=== PATIENT | female | born 1990 ===

== ENCOUNTER 2021-06-01 23:31 | Inpatient (IN) | payer SELFPAY ==
[2021-06-02] MEDS ORDERED: ONDANSETRON 4 MG ODT TAB PO ONE (02:46)
[2021-06-02] MEDS ORDERED: ONDANSETRON 4 MG/2 ML INJ IV ONE ×2 (04:19→07:29)
[2021-06-02] MEDS ORDERED: MORPHINE 4 MG/1 ML INJ IV ONE ×2 (04:19→07:30)
[2021-06-02] MEDS ORDERED: FAMOTIDINE 20 MG/2 ML INJ IV ONE (04:19)
[2021-06-02 04:54] LABS: Basophils % (Auto) 0.2 % (0.0-1.8); Eosinophils % (Auto) 0.1 % (0.0-4.3); Hematocrit 34.9 % (30.3-42.9); Hemoglobin 11.7 gm/dl (10.1-14.3); Lymphocytes # (Auto) 1.5 K/mm3 (1.2-5.4); Lymphocytes % (Auto) 15.5 % (13.4-35.0); Mean Corpuscular HGB Conc 34 % (30-34); Mean Corpuscular Volume 88 fl (79-97); Monocytes # (Auto) 0.5 K/mm3 (0.0-0.8); Monocytes % (Auto) 5.4 % (0.0-7.3); Platelet Count 166 K/mm3 (140-440); Red Blood Count 3.96 M/mm3 (3.65-5.03); Red Cell Distribution Width 15.4 % (13.2-15.2)
[2021-06-02 05:17] LABS: Alanine Aminotransferase 600 units/L (7-56); Albumin 4.4 g/dL (3.9-5); Blood Urea Nitrogen 10 mg/dL (7-17); Calcium 9.2 mg/dL (8.4-10.2); Hemolysis Index 11
[2021-06-02 05:24] LABS: BUN/Creatinine Ratio 25
--- NOTE | 2021-06-02 06:00 | Ultrasound Report ---
ULTRASOUND ABDOMEN, LIMITED (RIGHT UPPER QUADRANT) INDICATION: RUQ Pain. COMPARISON: None available. FINDINGS: Pancreas: Visualized portion shows no significant abnormality. Liver: Normal in size, measuring 14.1 cm in length, with generalized increased echotexture. No other significant abnormality. Gallbladder: Cholelithiasis is noted without evidence of acute cholecystitis. Sonographic Guadarrama's s ign: Not performed. Bile ducts: Mildly dilated common duct, measuring 7.7 mm. No intrahepatic ductal dilatation. Free fluid: None. Additional Findings: None. IMPRESSION: 1. Cholelithiasis without sonographic evidence of acute cholecystitis. 2. Mildly dilated common bile duct is nonspecific. Signer Name: Bunny Parish MD Signed: 06/02/2021 5:55 AM Workstation Name: [id number]
[2021-06-02 06:51] LABS: Bilirubin,Urine NEG (Negative); Blood,Urine NEG (Negative); Color,Urine Yellow (Yellow); Mucus,Urine 3+ /HPF; Protein,Urine <15 mg/dL mg/dL (Negative)
--- NOTE | 2021-06-02 07:22 | Emergency Department Report ---
ED Abdominal Pain HPI - General Chief Complaint: Abdominal Pain Stated Complaint: SEVERE STOMACH PAIN/EMESIS Source: patient Mode of arrival: Ambulatory Limitations: No Limitations - History of Present Illness Initial Comments: Patient is a A0 30-year-old female with no past medical history presents to the ED with complaint of acute onset persistent severe epigastric pain that radiates to the right upper quadrant area with intractable nausea and vomiting for the last 1 week, worse in the last 2 days. Patient states that the pain appears to be triggered each time she eats any food and in the last 8 hours after eating meal of pork the pain became constant, worse and persistent with intractable nausea and vomiting. Patient denies fever, chills, dizziness, sy ncope, chest pain, shortness of breath, dysuria, urinary frequency and urgency, hematemesis, hematochezia, diarrhea, vaginal bleeding, vaginal discharge, hematuria, fever and chills. MD Complaint: abdominal pain (Right upper quadrant pain), other (Nausea and vomiting) -: Sudden, week(s) (1) Location: RUQ, epigastric Radiation: RUQ, epigastric Migration to: no migration Severity: severe Severity scale (0 -10): 8 Quality: cramping, sharp Consistency: constant Improves With: nothing Worsens With: eating, vomiting Associated Symptoms: denies other symptoms, nausea, vomiting, anorexia. denies: diarrhea, fever, chills, constipation, dysuria, hematemesis, hematochezia, melena, hematuria, syncope, other - Related Data LMP Date: 05/07/21 Allergies Allergy/AdvReac Type Severity Reaction Status Date / Time No Known Allergies Allergy Unverified 06/02/21 02:46 ED Review of Systems ROS: Stated complaint: SEVERE STOMACH PAIN/EMESIS Other details as noted in HPI Constitutional: denies: chills, fever Eyes: denies: eye pain, eye discharge, vision change ENT: denies: ear pain, throat pain Respiratory: denies: cough, shortness of breath, wheezing Cardiovascular: denies: chest pain, palpitations Endocrine: no symptoms reported Gastrointestinal: abdominal pain (Right upper quadrant and epigastric pain), nausea, vomiting. denies: diarrhea Genitourinary: denies: urgency, dysuria, discharge Musculoskeletal: denies: back pain, joint swelling, arthralgia Skin: denies: rash, lesions Neurological: denies: headache, weakness, paresthesias Psychiatric: denies: anxiety, depression Hematological/Lymphatic: denies: easy bleeding, easy bruising ED Past Medical Hx - Past Medical History Previous Medical History?: No - Surgical History Past Surgical History?: Yes Hx Appendectomy: Yes (2007) - Social History Smoking Status: Never Smoker Substance Use Type: None ED Physical Exam - General Limitations: No Limitations General appearance: alert, in no apparent distress - Head Head exam: Present: atraumatic, normocephalic, normal inspection - Eye Eye exam: Present: normal appearance, PERRL, EOMI Pupils: Present: normal accommodation - ENT ENT exam: Present: normal exam, normal orophraynx, mucous membranes moist, TM's normal bilaterally, normal external ear exam - Neck Neck exam: Present: normal inspection, full ROM - Respiratory Respiratory exam: Present: normal lung sounds bilaterally. Absent: respiratory distress, wheezes, rales, rhonchi, stridor, chest wall tenderness, accessory muscle use, decreased breath sounds, prolonged expiratory - Cardiovascular Cardiovascular Exam: Present: regular rate, normal rhythm, normal heart sounds. Absent: systolic murmur, diastolic murmur, rubs, gallop - GI/Abdominal GI/Abdominal exam: Present: soft, tenderness (Palpable epigastric and right upper quadrant tenderness with positive Guadarrama sign), guarding, rebound, normal bowel sounds. Absent: hyperactive bowel sounds, hypoactive bowel sounds, organomegaly, mass - Extremities Exam Extremities exam: Present: normal inspection, full ROM, normal capillary refill - Back Exam Back exam: Present: normal inspection, full ROM. Absent: tenderness, CVA tenderness (R), muscle spasm, paraspinal tenderness, vertebral tenderness - Neurological Exam Neurological exam: Present: alert, oriented X3, CN II-XII intact, normal gait, reflexes normal - Psychiatric Psychiatric exam: Present: normal affect, normal mood - Skin Skin exam: Present: warm, dry, intact, normal color. Absent: rash ED Course Vital Signs 06/02/21 02:28 Temperature 98.6 F Pulse Rate 77 Respiratory 18 Rate Blood Pressure 95/60 O2 Sat by Pulse 99 Oximetry ED Medical Decision Making - Lab Data Result diagrams: 06/02/21 04:24 06/02/21 04:24 - Radiology Data Radiology results: report reviewed, image reviewed [facility] [address] [place] [id number] Ultrasound Report Signed Patient: ABE LIU MR# : [id number] : 1990 Acct:[id number] Age/Sex: 30 / F ADM Date: 06/01/21 Loc: ED Attending Dr: Ordering Physician: HI UGARTE Date of Service: 06/02/21 Procedure(s): US abdomen limited Accession Number(s): [id number] cc: HI UGARTE ULTRASOUND ABDOMEN, LIMITED (RIGHT UPPER QUADRANT) INDICATION: RUQ Pain. COMPARISON: None available. FINDINGS: Pancreas: Visualized portion shows no significant abnormality. Liver: Normal in size, measuring 14.1 cm in length, with generalized increased echotexture. No other significant abnormality. Gallbladder: Cholelithiasis is noted without evidence of acute cholecystitis. Sonographic Guadarrama's sign: Not performed. Bile ducts: Mildly dilated common duct, measuring 7.7 mm. No intrahepatic ductal dilatation. Free fluid: None. Additional Findings: None. IMPRESSION: 1. Cholelithiasis without sonographic evidence of acute cholecystitis. 2. Mildly dilated common bile duct is nonspecific. Signer Name: Bunny Parish MD Signed: 06/02/2021 5:55 AM Workstation Name: [id number] Transcribed By: [place] Dictated By: Bunny Parish MD Electronically Authenticated By: Bunny Parish MD Signed Date/Time: 06/02/21 0555 DD/ TD/TT: - Medical Decision Making This is a A0 30-year-old female with no past medical history presents to the ED with complaint of acute onset persistent severe epigastric pain that radiates to the right upper quadrant area with intractable nausea and vomiting for the last 1 week, worse in the last 2 days. Patient states that the pain appears to be triggered each time she eats any food and in the last 8 hours after eating meal of pork the pain became constant, worse and persistent with intractable nausea and vomiting. In the ED, patient is alert and oriented x3 and is not in any distress but appears to be in significant pain. Patient is hemodynamically stable. Patient was treated for pain in the ED and also given antiemetics and antacids in the ED. Lab test results were reviewed and showed AST of 1150 and ALT of 600 with mild hyponatremia of 135 mmol/L. The rest of the lab test results are nonactionable. The gallbladder ultrasound showed cholelithiasis without sonographic evidence of acute cholecystitis. It also showed a mildly dilated common bile duct which is nonspecific and which measures 7.7 mm and with no intrahepatic ductal dilatation. The patient case was discussed with the ED attending physician, Dr. De Santiago who advised that the general surgeon on-call Dr. Tran be consulted. I therefore paged and discussed the patient's case with the general surgeon on-call Dr. Tran who advised the patient be admitted by the hospitalist physician on-call and that the patient be kept n.p.o. and started on IV antibiotics Zosyn and he shall consult on the patient upon admission. I therefore paged and discussed the patient's case with the hospitalist physician on-call Dr. Shayy Zamarripa for Dr. Arsenio Estrada who advised that the bridge orders be made for the patient. - Differential Diagnosis Cholelithiasis; cholecystitis; GERD; kidney stone; pancreatitis; hepatitis Critical care attestation.: If time is entered above; I have spent that time in minutes in the direct care of this critically ill patient, excluding procedure time. ED Disposition Clinical Impression: Acute abdominal pain in right upper quadrant, Nausea and vomiting in adult patient, Cholelithiasis without cholecystitis Disposition: 09 OP ADMIT IP TO THIS HOSP Is pt being admited?: Yes Does the pt Need Aspirin: No Condition: Stable Instructions: Abdominal Pain (ED) Time of Disposition: 07:34 Print Language: HEBREW
[2021-06-02] MEDS ORDERED: PIPERACIL/TAZOBACTA 4.5/NS 100 4.5 GM/100 ML VIAL IV ONE (07:29)
[2021-06-02] MEDS ORDERED: SODIUM CHLORIDE 0.9% 1000 ML 1,000 ML IV ONE (07:29)
[2021-06-02] MEDS ORDERED: ACETAMINOPHEN 325 MG TAB PO PRN (07:36)
[2021-06-02] MEDS ORDERED: ONDANSETRON 4 MG/2 ML INJ IV PRN (07:36)
[2021-06-02] MEDS ORDERED: HYDROmorphone 1 MG/1 ML INJ IV PRN (07:36)
--- NOTE | 2021-06-02 08:53 | History and Physical Report ---
History of Present Illness Date of admission: 06/02/2021 Chief complaint: Abdominal pain History of present illness: Dipti preston is a 30-year-old female with no significant past medical history presenting for persistent severe epigastric pain localized in the epigastric region and radiating to the right upper quadrant. She states that it has been ongoing for some time now however it was worse the last 2 days. She states that food triggers the pain and the pain progressively worsened to the point to where she had nausea and intractable vomiting. The emesis was kvng ious in color and had food particles. She denied hematemesis. She states that she still has her gallbladder. She denies current . Patient denies any fevers, chills, dizziness, chest pain, shortness of breath, dysuria, melena, hematochezia, vaginal bleeding or discharge. In the ED she received Zofran, morphine, Pepcid, NS. Right upper quadrant ultrasound demonstrates cholelithiasis without cholecystitis and common bile duct dilation of 7 mm. Transaminitis noted with AST of 1150 and ALT of 600. Dr. Tran was consulted by the ER physician and requested the patient be n.p.o. for potential procedure. PMHx: Denies, past pregnancies PSHx: Denies FHx: Reviewed noncontributory SHx: Tobacco use-denies ETOH Use-denies Recreational Drug Use-denies Past History Past Surgical History: No surgical history Social history: no significant social history Family history: no significant family history Medications and Allergies Allergies Allergy/AdvReac Type Severity Reaction Status Date / Time No Known Allergies Allergy Unverified 06/02/21 02:46 Active Meds: Active Medications Acetaminophen (Acetaminophen 325 Mg Tab) 650 mg PO Q4H PRN PRN Reason: Pain MILD(1-3)/Fever >100.5/OTTO Hydromorphone HCl (Hydromorphone 1 Mg/1 Ml Inj) 0.5 mg IV Q3H PRN PRN Reason: Pain , Severe (7-10) Ondansetron HCl (Ondansetron 4 Mg/2 Ml Inj) 4 mg IV Q8H PRN PRN Reason: Nausea And Vomiting Sodium Chloride (Sodium Chloride 0.9% 10 Ml Flush Syringe) 10 ml IV BID WEST Sodium Chloride (Sodium Chloride 0.9% 10 Ml Flush Syringe) 10 ml IV PRN PRN PRN Reason: LINE FLUSH Exam - Physical Exam Narrative exam: Physical Exam: GENERAL APPEARANCE: Well developed, well nourished, alert and cooperative, and appears to be in no acute distress at the time of this exam. HEAD: normocephalic. EYES: PERRL, EOMI. Vision is grossly intact. EARS: No gross deformities NOSE: No nasal discharge. THROAT: Oral cavity and pharynx normal. No inflammation, swelling, exudate, or lesions. Teeth and gingiva in good general condition. NECK: Neck supple, non-tender without lymphadenopathy, masses or thyromegaly. CARDIAC: Normal S1 and S2. No S3, S4 or murmurs. Rhythm is regular. There is no peripheral edema, cyanosis or pallor. Extremities are warm and well perfused. Ca pillary refill is less than 2 seconds. No carotid bruits. LUNGS: Clear to auscultation and percussion without rales, rhonchi, wheezing or diminished breath sounds. ABDOMEN: Positive bowel sounds. Soft, nondistended, tender in epigastric region with some guarding at right upper quadrant. NO rebound tenderness. No masses. MUSKULOSKELETAL: Adequately aligned spine. ROM intact spine and extremities. No joint erythema or tenderness. Normal muscular development. Normal gait. BACK: Examination of the spine reveals normal gait and posture EXTREMITIES: No significant deformity or joint abnormality. No edema. Peripheral pulses intact. No varicosities. NEUROLOGICAL: CN II-XII intact. Strength and sensation symmetric and intact throughout. Reflexes 2+ throughout. PSYCHIATRIC: The mental examination revealed the patient was oriented to person, place, and time. - Constitutional Vitals: Temp Pulse Resp BP Pulse Ox 98.6 F 77 18 95/60 99 06/02/21 02:28 06/02/21 02:28 06/02/21 02:28 06/02/21 02:28 06/02/21 02:28 Results - Labs CBC & Chem 7: 06/02/21 04:24 06/02/21 04:24 Labs: Laboratory Last Values WBC 9.7 K/mm3 (4.5-11.0) 06/02/21 04:24 RBC 3.96 M/mm3 (3.65-5.03) 06/02/21 04:24 Hgb 11.7 gm/dl (10.1-14.3) 06/02/21 04:24 Hct 34.9 % (30.3-42.9) 06/02/21 04:24 MCV 88 fl (79-97) 06/02/21 04:24 MCH 30 pg (28-32) 06/02/21 04:24 MCHC 34 % (30-34) 06/02/21 04:24 RDW 15.4 % (13.2-15.2) H 06/02/21 04:24 Plt Count 166 K/mm3 (140-440) 06/02/21 04:24 Lymph % (Auto) 15.5 % (13.4-35.0) 06/02/21 04:24 [place] % (Auto) 5.4 % (0.0-7.3) 06/02/21 04:24 Eos % (Auto) 0.1 % (0.0-4.3) 06/02/21 04:24 Baso % (Auto) 0.2 % (0.0-1.8) 06/02/21 04:24 Lymph # (Auto) 1.5 K/mm3 (1.2-5.4) 06/02/21 04:24 Jun[place] # (Auto) 0.5 K/mm3 (0.0-0.8) 06/02/21 04:24 Eos # (Auto) 0.0 K/mm3 (0.0-0.4) 06/02/21 04:24 Baso # (Auto) 0.0 K/mm3 (0.0-0.1) 06/02/21 04:24 Seg Neutrophils % 78.8 % (40.0-70.0) H 06/02/21 04:24 Seg Neutrophils # 7.7 K/mm3 (1.8-7.7) 06/02/21 04:24 Sodium 135 mmol/L (137-145) L 06/02/21 04:24 Potassium 4.1 mmol/L (3.6-5.0) 06/02/21 04:24 Chloride 101.4 mmol/L (98-107) 06/02/21 04:24 Carbon Dioxide 23 mmol/L (22-30) 06/02/21 04:24 Anion Gap 15 mmol/L 06/02/21 04:24 BUN 10 mg/dL (7-17) 06/02/21 04:24 Creatinine 0.4 mg/dL (0.6-1.2) L 06/02/21 04:24 Estimated GFR > 60 ml/min 06/02/21 04:24 BUN/Creatinine Ratio 25 % 06/02/21 04:24 Glucose 111 mg/dL (65-100) H 06/02/21 04:24 Lactic Acid 0.70 mmol/L (0.7-2.0) 06/02/21 08:06 Calcium 9.2 mg/dL (8.4-10.2) 06/02/21 04:24 Total Bilirubin 0.70 mg/dL (0.1-1.2) 06/02/21 04:24 AST 1150 units/L (5-40) H 06/02/21 04:24 ALT 600 units/L (7-56) H 06/02/21 04:24 Alkaline Phosphatase 118 units/L (35-129) 06/02/21 04:24 Total Protein 8.0 g/dL (6.3-8.2) 06/02/21 04:24 Albumin 4.4 g/dL (3.9-5) 06/02/21 04:24 Albumin/Globulin Ratio 1.2 % 06/02/21 04:24 Lipase 27 units/L (13-60) 06/02/21 04:24 HCG, Qual Negative (Negative) 06/02/21 04:24 Urine Color Yellow (Yellow) 06/02/21 06:34 Urine Turbidity Cloudy (Clear) 06/02/21 06:34 Urine pH 6.0 (5.0-7.0) 06/02/21 06:34 Ur Specific [place] 1.027 (1.003-1.030) 06/02/21 06:34 Urine Protein <15 mg/dl mg/dL (Negative) 06/02/21 06:34 Urine Glucose (UA) Neg mg/dL (Negative) 06/02/21 06:34 Urine Ketones Neg mg/dL (Negative) 06/02/21 06:34 Urine Blood Neg (Negative) 06/02/21 06:34 Urine Nitrite Neg (Negative) 06/02/21 06:34 Urine Bilirubin Neg (Negative) 06/02/21 06:34 Urine Urobilinogen 2.0 mg/dL (<2.0) 06/02/21 06:34 Ur Leukocyte Esterase Neg (Negative) 06/02/21 06:34 Urine WBC (Auto) 4.0 /HPF (0.0-6.0) 06/02/21 06:34 Urine RBC (Auto) 28.0 /HPF (0.0-6.0) 06/02/21 06:34 U Epithel Cells (Auto) 8.0 /HPF (0-13.0) 06/02/21 06:34 Urine Mucus 3+ /HPF 06/02/21 06:34 Assessment and Plan Assessment and plan: Assessment and plan 1. Acute epigastric abdominal pain -Intractable nausea vomiting, epigastric pain, radiation to RUQ RUQ ultrasound: Demonstrates cholelithiasis, no cholecystitis, common bile duct dilatation is 7 mm. Please refer to report for official read IV Zofran prn, Morphine prn, dilaudid prn -NS 1 L IV at 75 cc/hr x 1 bag. N.p.o. -General surgery consulted 2. Transaminitis Biliary obstruction vs viral AST 1150, ALT 600, ALP 100 Avoid hepatotoxic agents Hepatitis panel ordered Daily hepatic panel 3. Cholelithiasis Noted on RUQ ultrasound Management as above
[2021-06-02] MEDS ORDERED: IBUPROFEN 600 MG TAB PO PRN (10:48)
[2021-06-02] MEDS ORDERED: POTASSIUM CHLORIDE 10 MEQ 10 MEQ/100 ML BAG IV PRN ×2 (10:53)
[2021-06-02] MEDS ORDERED: MAGNESIUM SULFATE 2 GM/50 ML BAG IV PRN (10:53)
[2021-06-02] MEDS ORDERED: POTASSIUM CHLORIDE ER 20 MEQ TAB PO PRN (10:53)
[2021-06-02] MEDS ORDERED: MAGNESIUM SULFATE 1 GM in SODIUM CHLORIDE 0.9% 50 ML IV PRN (10:53)
[2021-06-02] MEDS ORDERED: MAGNESIUM SULFATE 4 GM/100 ML BAG IV PRN (10:53)
[2021-06-02] MEDS ORDERED: SODIUM CHLORIDE 0.9% 1000 ML 1,000 ML IV SCH (11:00)
[2021-06-02] MEDS ORDERED: SODIUM PHOSPHATE 15 MMOL in SODIUM CHLORIDE 0.9% 250ML 150 ML IV PRN ×3 (11:30→12:29)
[2021-06-02 13:50] LABS: Hepatitis B Surface Antigen Non-Reactive (Negative); Hepatitis C Virus Antibody Non-Reactive (NonReactive)
--- NOTE | 2021-06-02 17:32 | Consultation ---
History of Present Illness Consult date: 06/02/21 Reason for consult: abdominal pain - History of present illness History of present illness: 30 yo female with 2 days of epigastric/RUQ pain, nausea and vomiting. The pain has been ongoing for some time but never this severe. Pain occurs after fatty meals. Denies hematemesis, melena, hematochezia, change in bowel habits or urin cher complaints. Past History Past Surgical History: No surgical history Social history: no significant social history Family history: no significant family history Medications and Allergies Allergies Allergy/AdvReac Type Severity Reaction Status Date / Time No Known Allergies Allergy Unverified 06/02/21 02:46 Active Meds: Active Medications Hydromorphone HCl (Hydromorphone 1 Mg/1 Ml Inj) 0.5 mg IV Q3H PRN PRN Reason: Pain , Severe (7-10) Sodium Chloride (Nacl 0.9% 1000 Ml) 1,000 mls @ 75 mls/hr IV DIRECT WEST Stop: 06/03/21 00:19 Magnesium Sulfate 1 gm/ Sodium (Chloride) 52 mls @ 26 mls/hr IV Q2H PRN PRN Reason: Magnesium level 1.8-2 mg/dL Magnesium Sulfate (Magnesium Sulfate 2gm/50ml) 2 gm in 50 mls @ 25 mls/hr IV Q2H PRN PRN Reason: Magnesium level 1.5-1.7 mg/dL Magnesium Sulfate (Magnesium Sulfate 4gm/100ml) 4 gm in 100 mls @ 25 mls/hr IV Q4H PRN PRN Reason: Magnesium level < 1.4 mg/dL Potassium Chloride (Kcl 10meq/100ml) 10 meq in 100 mls @ 100 mls/hr IV Q1H PRN PRN Reason: Potassium 3-3.5 mEq/L Potassium Chloride (Kcl 10meq/100ml) 10 meq in 100 mls @ 100 mls/hr IV Q1H PRN PRN Reason: Potassium 2.6-2.9 mEq/L Sodium Phosphate 15 mmol/ (Sodium Chloride) 155 mls @ 40 mls/hr IV Q4H PRN PRN Reason: Phosphorous level 1.2-2.5 mg/d Morphine Sulfate (Morphine 2 Mg/1 Ml Inj) 2 mg IV Q4H PRN PRN Reason: Pain, Moderate (4-6) Ondansetron HCl (Ondansetron 4 Mg/2 Ml Inj) 4 mg IV Q8H PRN PRN Reason: Nausea And Vomiting Potassium Chloride (Potassium Chloride Er 20 Meq Tab) 20 meq PO Q2H PRN PRN Reason: Potassium 3-3.5 mEq/L Sodium Chloride (Sodium Chloride 0.9% 10 Ml Flush Syringe) 10 ml IV BID WEST Sodium Chloride (Sodium Chloride 0.9% 10 Ml Flush Syringe) 10 ml IV PRN PRN PRN Reason: LINE FLUSH Sodium Chloride (Sodium Chloride 0.9% 10 Ml Flush Syringe) 10 ml IV BID WEST Sodium Chloride (Sodium Chloride 0.9% 10 Ml Flush Syringe) 10 ml IV PRN PRN PRN Reason: LINE FLUSH Review of Systems All systems: negative (none) Exam Vital Signs Temp Pulse Resp BP Pulse Ox 98.6 F 77 18 95/60 99 06/02/21 02:28 06/02/21 02:28 06/02/21 02:28 06/02/21 02:28 06/02/21 02:28 - General physical appearance Positive: well developed, well nourished, no distress - Eyes Positive: PERRL, normal occular movement - ENT Positive: normal pinna, normal nares, normal mucosa, no hearing loss, no congestion - Neck Positive: no masses, no bruits, trachea midline, no venous distension - Respiratory Positive: normal expansion, normal respiratory effort, clear to auscultation - Cardiovascular Rhythm: regular Heart Sounds: Present: S1 & S2. Absent: rub, click - Extremities Extremities: no ischemia, pulses symmetrical, No edema - Breasts Breasts: normal, no mass, no skin changes - Abdomen Abdomen: Present: soft, bowel sounds hypoactive (Moderately TTP in the epigastrium and RUQ with minimal rebound and guarding.). Absent: distended Hernia: none - Genitourinary Male Genitourinary: normal Female Genitourinary: normal - Integumentary no rash, no growths, no abnormal pigmentation - Neurologic Neurologic: alert and oriented to time, place and person, motor strength and sensation are grossly intact - Musculoskeletal normal gait, normal posture - Psychiatric Psychiatric: appropriate mood/affect, intact judgment & insight Results - Labs 06/02/21 04:24 06/02/21 04:24 Abnormal lab results 06/02/21 06/02/21 Range/Units 04:24 04:24 RDW 15.4 H (13.2-15.2) % Seg Neutrophils % 78.8 H (40.0-70.0) % Sodium 135 L (137-145) mmol/L Creatinine 0.4 L (0.6-1.2) mg/dL Glucose 111 H (65-100) mg/dL AST 1150 H (5-40) units/L ALT 600 H (7-56) units/L Diabetes panel 06/02/21 Range/Units 04:24 Sodium 135 L (137-145) mmol/L Potassium 4.1 (3.6-5.0) mmol/L Chloride 101.4 (98-107) mmol/L Carbon Dioxide 23 (22-30) mmol/L BUN 10 (7-17) mg/dL Creatinine 0.4 L (0.6-1.2) mg/dL Glucose 111 H (65-100) mg/dL Calcium 9.2 (8.4-10.2) mg/dL AST 1150 H (5-40) units/L ALT 600 H (7-56) units/L Alkaline Phosphatase 118 (35-129) units/L Total Protein 8.0 (6.3-8.2) g/dL Albumin 4.4 (3.9-5) g/dL Calcium panel 06/02/21 Range/Units 04:24 Calcium 9.2 (8.4-10.2) mg/dL Albumin 4.4 (3.9-5) g/dL Pituitary panel 06/02/21 Range/Units 04:24 Sodium 135 L (137-145) mmol/L Potassium 4.1 (3.6-5.0) mmol/L Chloride 101.4 (98-107) mmol/L Carbon Dioxide 23 (22-30) mmol/L BUN 10 (7-17) mg/dL Creatinine 0.4 L (0.6-1.2) mg/dL Glucose 111 H (65-100) mg/dL Calcium 9.2 (8.4-10.2) mg/dL Adrenal panel 06/02/21 Range/Units 04:24 Sodium 135 L (137-145) mmol/L Potassium 4.1 (3.6-5.0) mmol/L Chloride 101.4 (98-107) mmol/L Carbon Dioxide 23 (22-30) mmol/L BUN 10 (7-17) mg/dL Creatinine 0.4 L (0.6-1.2) mg/dL Glucose 111 H (65-100) mg/dL Calcium 9.2 (8.4-10.2) mg/dL Total Bilirubin 0.70 (0.1-1.2) mg/dL AST 1150 H (5-40) units/L ALT 600 H (7-56) units/L Alkaline Phosphatase 118 (35-129) units/L Total Protein 8.0 (6.3-8.2) g/dL Albumin 4.4 (3.9-5) g/dL - Imaging US - abdomen: report reviewed Assessment and Plan - Patient Problems (1) Acute cholecystitis with chronic cholecystitis Current Visit: Yes Status: Acute Plan to address problem: 1) NPO 2) IV Zosyn 3) Lap ge tomorrow
[2021-06-03] MEDS: PIPERACILLIN/TAZOBACTAM 3.375 3.375 GM/50 ML BAG IV SCH ×4 (01:36→18:01)
[2021-06-03] MEDS: MORPHINE 2 MG/1 ML INJ IV PRN (06:46)
--- NOTE | 2021-06-03 07:18 | Progress Note ---
Assessment and Plan Assessment and plan: Assessment and plan 1. Acute epigastric abdominal pain -Intractable nausea vomiting, epigastric pain, radiation to RUQ RUQ ultrasound: Demonstrates cholelithiasis, no cholecystitis, common bile duct dilatation is 7 mm. Please refer to report for official read IV Zofran prn, Morphine prn, dilaudid prn N.p.o. -General surgery consulted 2. Hypoglycemia - BG 60 this AM - hypoglyemic protocol ordered - D10W IV x 1 bag. 3. Transaminitis Biliary obstruction vs viral AST 1150, ALT 600, ALP 100 Avoid hepatotoxic agents Hepatitis panel ordered Daily hepatic panel 4. Cholelithiasis Noted on RUQ ultrasound Management as above 5. Cholecystitis - managmenet as above. Dispo: Plan for surgery today with Dr. Tran. Will follow up post op. History Interval history: Patient this morning stated that she is feeling fatigue. Was requesting food and water. Told patient that she is n.p.o. for her procedure today. Plan is for procedure today at [address] Tran. Hospitalist Physical - Physical exam Narrative exam: Physical Exam: GENERAL APPEARANCE: Well developed, fatigued this AM, alert and cooperative, and appears to be in no acute distress at the time of this exam. HEAD: normocephalic. EYES: PERRL, EOMI. Vision is grossly intact. EARS: No gross deformities NOSE: No nasal discharge. THROAT: Oral cavity and pharynx normal. No inflammation, swelling, exudate, or lesions. Teeth and gingiva in good general condition. NECK: Neck supple, non-tender without lymphadenopathy, masses or thyromegaly. CARDIAC: Normal S1 and S2. No S3, S4 or murmurs. Rhythm is regular. There is no peripheral edema, cyanosis or pallor. Extremities are warm and well perfused. Capillary refill is less than 2 seconds. No carotid bruits. LUNGS: Clear to auscultation and percussion without rales, rhonchi, wheezing or diminished breath sounds. ABDOMEN: Positive bowel sounds. Soft, nondistended, tender in epigastric region with some guarding at right upper quadrant. NO rebound tenderness. No masses. MUSKULOSKELETAL: Adequately aligned spine. ROM intact spine and extremities. No joint erythema or tenderness. Normal muscular development. Normal gait. BACK: Examination of the spine reveals normal gait and posture EXTREMITIES: No significant deformity or joint abnormality. No edema. Peripheral pulses intact. No varicosities. NEUROLOGICAL: CN II-XII intact. Strength and sensation symmetric and intact throughout. Reflexes 2+ throughout. PSYCHIATRIC: The mental examination revealed the patient was oriented to person, place, and time. - Constitutional Vitals: Temp Pulse Resp BP Pulse Ox 98.6 F 61 18 96/60 97 06/03/21 04:09 06/03/21 04:09 06/03/21 04:09 06/03/21 04:09 06/03/21 04:20 Results - Labs CBC & Chem 7: 06/03/21 07:56 06/03/21 07:56 Labs: Laboratory Last Values WBC 9.7 K/mm3 (4.5-11.0) 06/02/21 04:24 RBC 3.96 M/mm3 (3.65-5.03) 06/02/21 04:24 Hgb 11.7 gm/dl (10.1-14.3) 06/02/21 04:24 Hct 34.9 % (30.3-42.9) 06/02/21 04:24 MCV 88 fl (79-97) 06/02/21 04:24 MCH 30 pg (28-32) 06/02/21 04:24 MCHC 34 % (30-34) 06/02/21 04:24 RDW 15.4 % (13.2-15.2) H 06/02/21 04:24 Plt Count 166 K/mm3 (140-440) 06/02/21 04:24 Lymph % (Auto) 15.5 % (13.4-35.0) 06/02/21 04:24 [place] % (Auto) 5.4 % (0.0-7.3) 06/02/21 04:24 Eos % (Auto) 0.1 % (0.0-4.3) 06/02/21 04:24 Baso % (Auto) 0.2 % (0.0-1.8) 06/02/21 04:24 Lymph # (Auto) 1.5 K/mm3 (1.2-5.4) 06/02/21 04:24 [place] # (Auto) 0.5 K/mm3 (0.0-0.8) 06/02/21 04:24 Eos # (Auto) 0.0 K/mm3 (0.0-0.4) 06/02/21 04:24 Baso # (Auto) 0.0 K/mm3 (0.0-0.1) 06/02/21 04:24 Seg Neutrophils % 78.8 % (40.0-70.0) H 06/02/21 04:24 Seg Neutrophils # 7.7 K/mm3 (1.8-7.7) 06/02/21 04:24 Sodium 135 mmol/L (137-145) L 06/02/21 04:24 Potassium 4.1 mmol/L (3.6-5.0) 06/02/21 04:24 Chloride 101.4 mmol/L (98-107) 06/02/21 04:24 Carbon Dioxide 23 mmol/L (22-30) 06/02/21 04:24 Anion Gap 15 mmol/L 06/02/21 04:24 BUN 10 mg/dL (7-17) 06/02/21 04:24 Creatinine 0.4 mg/dL (0.6-1.2) L 06/02/21 04:24 Estimated GFR > 60 ml/min 06/02/21 04:24 BUN/Creatinine Ratio 25 % 06/02/21 04:24 Glucose 111 mg/dL (65-100) H 06/02/21 04:24 Lactic Acid 0.70 mmol/L (0.7-2.0) 06/02/21 08:06 Calcium 9.2 mg/dL (8.4-10.2) 06/02/21 04:24 Total Bilirubin 0.70 mg/dL (0.1-1.2) 06/02/21 04:24 AST 1150 units/L (5-40) H 06/02/21 04:24 ALT 600 units/L (7-56) H 06/02/21 04:24 Alkaline Phosphatase 118 units/L (35-129) 06/02/21 04:24 Total Protein 8.0 g/dL (6.3-8.2) 06/02/21 04:24 Albumin 4.4 g/dL (3.9-5) 06/02/21 04:24 Albumin/Globulin Ratio 1.2 % 06/02/21 04:24 Lipase 27 units/L (13-60) 06/02/21 04:24 HCG, Qual Negative (Negative) 06/02/21 04:24 Urine Color Yellow (Yellow) 06/02/21 06:34 Urine Turbidity Cloudy (Clear) 06/02/21 06:34 Urine pH 6.0 (5.0-7.0) 06/02/21 06:34 Ur Specific [place] 1.027 (1.003-1.030) 06/02/21 06:34 Urine Protein <15 mg/dl mg/dL (Negative) 06/02/21 06:34 Urine Glucose (UA) Neg mg/dL (Negative) 06/02/21 06:34 Urine Ketones Neg mg/dL (Negative) 06/02/21 06:34 Urine Blood Neg (Negative) 06/02/21 06:34 Urine Nitrite Neg (Negative) 06/02/21 06:34 Urine Bilirubin Neg (Negative) 06/02/21 06:34 Urine Urobilinogen 2.0 mg/dL (<2.0) 06/02/21 06:34 Ur Leukocyte Esterase Neg (Negative) 06/02/21 06:34 Urine WBC (Auto) 4.0 /HPF (0.0-6.0) 06/02/21 06:34 Urine RBC (Auto) 28.0 /HPF (0.0-6.0) 06/02/21 06:34 U Epithel Cells (Auto) 8.0 /HPF (0-13.0) 06/02/21 06:34 Urine Mucus 3+ /HPF 06/02/21 06:34 Hepatitis A IgM Ab Non-reactive (NonReactive) 06/02/21 12:17 Hep Bs Antigen Non-reactive (Negative) 06/02/21 12:17 Hep B Core IgM Ab Non-reactive (NonReactive) 06/02/21 12:17 Hepatitis C Antibody Non-reactive (NonReactive) 06/02/21 12:17 Microbiology: Microbiology 06/02/21 08:06 Peripheral/Venous Blood Culture - Preliminary Culture in Progress 06/02/21 08:06 Peripheral/Venous Blood Culture - Preliminary Culture in Progress [place]/IV: Voiding Method Toilet Active Medications - Current Medications Current Medications: Generic Name Dose Route Start Last Admin Trade Name Freq PRN Reason Stop Dose Admin Hydromorphone HCl 0.5 mg 06/02/21 07:36 Hydromorphone 1 Mg/1 Ml Inj IV Q3H PRN Pain , Severe (7-10) Magnesium Sulfate 1 gm/ Sodium 52 mls @ 26 mls/hr 06/02/21 10:53 Chloride IV Q2H PRN Magnesium level 1.8-2 mg/dL Magnesium Sulfate 2 gm in 50 mls @ 25 mls/hr 06/02/21 10:53 Magnesium Sulfate 2gm/50ml IV Q2H PRN Magnesium level 1.5-1.7 mg/dL Magnesium Sulfate 4 gm in 100 mls @ 25 mls/hr 06/02/21 10:53 Magnesium Sulfate 4gm/100ml IV Q4H PRN Magnesium level < 1.4 mg/dL Potassium Chloride 10 meq in 100 mls @ 100 mls/hr 06/02/21 10:53 Kcl 10meq/100ml IV Q1H PRN Potassium 3-3.5 mEq/L Potassium Chloride 10 meq in 100 mls @ 100 mls/hr 06/02/21 10:53 Kcl 10meq/100ml IV Q1H PRN Potassium 2.6-2.9 mEq/L Sodium Phosphate 15 mmol/ 155 mls @ 40 mls/hr 06/02/21 12:29 Sodium Chloride IV Q4H PRN Phosphorous level 1.2-2.5 mg/d Piperacillin Sod/Tazobactam Sod 3.375 gm in 50 mls @ 100 mls/hr 06/02/21 18:00 06/03/21 01:37 Zosyn/Ns 3.375gm/50ml IV 100 mls/hr Q8H WEST Administration Protocol Morphine Sulfate 2 mg 06/02/21 11:00 06/03/21 06:46 Morphine 2 Mg/1 Ml Inj IV 2 mg Q4H PRN Administration Pain, Moderate (4-6) Ondansetron HCl 4 mg 06/02/21 07:36 Ondansetron 4 Mg/2 Ml Inj IV Q8H PRN Nausea And Vomiting Potassium Chloride 20 meq 06/02/21 10:53 Potassium Chloride Er 20 Meq Tab PO Q2H PRN Potassium 3-3.5 mEq/L Sodium Chloride 10 ml 06/02/21 10:00 06/03/21 01:39 Sodium Chloride 0.9% 10 Ml Flush Syringe IV Not Given BID WEST Sodium Chloride 10 ml 06/02/21 07:36 Sodium Chloride 0.9% 10 Ml Flush Syringe IV PRN PRN LINE FLUSH Sodium Chloride 10 ml 06/02/21 22:00 06/03/21 01:38 Sodium Chloride 0.9% 10 Ml Flush Syringe IV 10 ml BID WEST Administration Sodium Chloride 10 ml 06/02/21 11:00 Sodium Chloride 0.9% 10 Ml Flush Syringe IV PRN PRN LINE FLUSH
[2021-06-03] MEDS ORDERED: PIPERACILLIN/TAZOBACTAM 3.375 3.375 GM/50 ML BAG IV SCH (08:00)
[2021-06-03 08:43] LABS: Basophils % (Auto) 0.3 % (0.0-1.8); Eosinophils # (Auto) 0.1 K/mm3 (0.0-0.4); Eosinophils % (Auto) 2.1 % (0.0-4.3); Hematocrit 32.9 % (30.3-42.9); Hemoglobin 10.9 gm/dl (10.1-14.3); Lymphocytes # (Auto) 1.6 K/mm3 (1.2-5.4); Lymphocytes % (Auto) 23.3 % (13.4-35.0); Mean Corpuscular HGB Conc 33 % (30-34); Mean Corpuscular Volume 89 fl (79-97); Monocytes # (Auto) 0.4 K/mm3 (0.0-0.8); Platelet Count 147 K/mm3 (140-440); Red Cell Distribution Width 15.6 % (13.2-15.2)
[2021-06-03 09:26] LABS: Alanine Aminotransferase 697 units/L (7-56); Albumin 3.9 g/dL (3.9-5); Blood Urea Nitrogen 8 mg/dL (7-17); Calcium 8.9 mg/dL (8.4-10.2); Hemolysis Index 1
[2021-06-03 09:42] LABS: BUN/Creatinine Ratio 16
[2021-06-03] MEDS ORDERED: DEXTROSE 50% IN WATER (25GM) 50 ML SYRINGE IV PRN (11:15)
[2021-06-03] MEDS ORDERED: DEXTROSE 10% IN WATER 1,000 ML IV SCH (12:00)
--- NOTE | 2021-06-03 14:34 | Progress Note ---
Assessment and Plan - Patient Problems (1) Acute cholecystitis with chronic cholecystitis Current Visit: Yes Status: Acute Plan to address problem: 1) Will check MRCP prior to lap ge b/o increasing LFT. 2) Continue NPO Subjective Date of service: 06/03/21 Patient Reports: Positive: no new complaints, feels better, pain is less Objective Vital Signs - 12hr 06/03/21 06/03/21 06/03/21 04:09 04:20 10:00 Temperature 98.6 F Pulse Rate 61 Respiratory 18 Rate Blood Pressure 96/60 O2 Sat by Pulse 97 97 97 Oximetry - Abdomen soft, bowel sounds normal (Mild epigastric tenderness without rebound or guarding) - Labs 06/03/21 07:56 06/03/21 07:56 Diabetes panel 06/03/21 Range/Units 07:56 Sodium 138 (137-145) mmol/L Potassium 3.8 (3.6-5.0) mmol/L Chloride 103.2 (98-107) mmol/L Carbon Dioxide 20 L (22-30) mmol/L BUN 8 (7-17) mg/dL Creatinine 0.5 L (0.6-1.2) mg/dL Glucose 62 L (65-100) mg/dL Calcium 8.9 (8.4-10.2) mg/dL AST 489 H (5-40) units/L ALT 697 H (7-56) units/L Alkaline Phosphatase 162 H (35-129) units/L Total Protein 6.7 (6.3-8.2) g/dL Albumin 3.9 (3.9-5) g/dL Calcium panel 06/03/21 Range/Units 07:56 Calcium 8.9 (8.4-10.2) mg/dL Phosphorus 3.10 (2.5-4.5) mg/dL Albumin 3.9 (3.9-5) g/dL Pituitary panel 06/03/21 Range/Units 07:56 Sodium 138 (137-145) mmol/L Potassium 3.8 (3.6-5.0) mmol/L Chloride 103.2 (98-107) mmol/L Carbon Dioxide 20 L (22-30) mmol/L BUN 8 (7-17) mg/dL Creatinine 0.5 L (0.6-1.2) mg/dL Glucose 62 L (65-100) mg/dL Calcium 8.9 (8.4-10.2) mg/dL Adrenal panel 06/03/21 Range/Units 07:56 Sodium 138 (137-145) mmol/L Potassium 3.8 (3.6-5.0) mmol/L Chloride 103.2 (98-107) mmol/L Carbon Dioxide 20 L (22-30) mmol/L BUN 8 (7-17) mg/dL Creatinine 0.5 L (0.6-1.2) mg/dL Glucose 62 L (65-100) mg/dL Calcium 8.9 (8.4-10.2) mg/dL Total Bilirubin 1.90 H (0.1-1.2) mg/dL AST 489 H (5-40) units/L ALT 697 H (7-56) units/L Alkaline Phosphatase 162 H (35-129) units/L Total Protein 6.7 (6.3-8.2) g/dL Albumin 3.9 (3.9-5) g/dL
--- NOTE | 2021-06-03 15:30 | Magnetic Resonance Report ---
MRI ABDOMEN MRCP INDICATION / CLINICAL INFORMATION: acute cholecystitis with elevated LFT. TECHNIQUE: Multiplanar, multisequence series were obtained through the abdomen. Thin slab and radial MRCP images . COMPARISON: Right upper quadrant ultrasound performed yesterday FINDINGS: LIVER: No significant abnormality. GALLBLADDER: There are multiple large gallstones within the gallbladder measuring up to 1.7 cm. There is no evidence for abnormal dilatation, wall thickening or pericholecystic fluid. BILE DUCTS: The coronal thin slab MRCP images demonstrate at least one common bile duct stone measuri ng 3 mm. The common bile duct is minimally dilated measuring 5.4 mm. The intrahepatic biliary ducts a nd pancreatic duct are unremarkable. PANCREAS: No significant abnormality. SPLEEN: No significant abnormality. ADRENALS: No significant abnormality. RIGHT KIDNEY AND URETER: No significant abnormality. LEFT KIDNEY AND URETER: No significant abnormality. STOMACH AND VISUALIZED BOWEL: No significant abnormality. PERITONEUM: No free fluid. No free air. No fluid collection. LYMPH NODES: No significant adenopathy. AORTA and ARTERIES: No significant abnormality. IVC and VEINS: No significant abnormality. ADDITIONAL FINDINGS: None. SKELETAL SYSTEM: No significant abnormality. IMPRESSION: Cholelithiasis but no evidence for acute cholecystitis. Choledocholithiasis as described. The pancreatic duct is minimally dilated up to 5.4 mm. These findings were discussed with Dr. Tran at 1525 hours EST. Signer Name: Sorin Landers Jr, MD Signed: 06/03/2021 3:25 PM Workstation Name: [id number]
[2021-06-03] MEDS ORDERED: SODIUM CHLORIDE 0.9% 1000 ML 1,000 ML IV ONE (23:55)
[2021-06-04] MEDS: PIPERACILLIN/TAZOBACTAM 3.375 3.375 GM/50 ML BAG IV SCH ×4 (00:06→18:25)
[2021-06-04] MEDS ORDERED: SODIUM CHLORIDE 0.9% 1000 ML 1,000 ML IV ONE (06:00)
[2021-06-04 09:26] LABS: Basophils % (Auto) 0.5 % (0.0-1.8); Eosinophils # (Auto) 0.1 K/mm3 (0.0-0.4); Eosinophils % (Auto) 1.8 % (0.0-4.3); Hematocrit 31.4 % (30.3-42.9); Hemoglobin 10.5 gm/dl (10.1-14.3); Lymphocytes # (Auto) 2.1 K/mm3 (1.2-5.4); Lymphocytes % (Auto) 35.1 % (13.4-35.0); Mean Corpuscular HGB Conc 34 % (30-34); Mean Corpuscular Volume 88 fl (79-97); Monocytes # (Auto) 0.4 K/mm3 (0.0-0.8); Monocytes % (Auto) 6.5 % (0.0-7.3); Platelet Count 150 K/mm3 (140-440); Red Blood Count 3.56 M/mm3 (3.65-5.03); Red Cell Distribution Width 15.7 % (13.2-15.2)
[2021-06-04 09:43] LABS: Alanine Aminotransferase 540 units/L (7-56); Albumin 3.9 g/dL (3.9-5); Blood Urea Nitrogen 4 mg/dL (7-17); Calcium 8.5 mg/dL (8.4-10.2); Hemolysis Index 7
[2021-06-04 09:44] LABS: BUN/Creatinine Ratio 8
[2021-06-04] MEDS: DEXTROSE 10% IN WATER 1,000 ML IV SCH (10:29)
[2021-06-04] MEDS ORDERED: SODIUM CHLORIDE 0.9% 1000 ML 1,000 ML IV SCH (10:30)
--- NOTE | 2021-06-04 13:06 | Progress Note ---
Assessment and Plan - Patient Problems (1) Acute cholecystitis with chronic cholecystitis Current Visit: Yes Status: Acute Plan to address problem: 1) Awaiting GI consult/ERCP 2) Lap ge, possibly tomorrow. I am going out of town. Dr.'s Colbert/Garett will assume care in my absence. 3) CBC & CMP in the am 4) NPO after MN Subjective Date of service: 06/04/21 Patient Reports: Positive: no new complaints, feels better, pain is less Objective Vital Signs - 12hr 06/04/21 06/04/21 04:39 11:41 Temperature 98.2 F Pulse Rate 62 Respiratory 19 Rate Blood Pressure 87/52 O2 Sat by Pulse 96 96 Oximetry - Abdomen soft, bowel sounds normal (Minimal epigastric tenderness without rebound or guarding) - Labs 06/04/21 07:48 06/04/21 07:48 Diabetes panel 06/04/21 Range/Units 07:48 Sodium 139 (137-145) mmol/L Potassium 3.5 L (3.6-5.0) mmol/L Chloride 107.1 H (98-107) mmol/L Carbon Dioxide 22 (22-30) mmol/L BUN 4 L (7-17) mg/dL Creatinine 0.5 L (0.6-1.2) mg/dL Glucose 89 (65-100) mg/dL Calcium 8.5 (8.4-10.2) mg/dL AST 243 H (5-40) units/L ALT 540 H (7-56) units/L Alkaline Phosphatase 177 H (35-129) units/L Total Protein 6.7 (6.3-8.2) g/dL Albumin 3.9 (3.9-5) g/dL Calcium panel 06/04/21 Range/Units 07:48 Calcium 8.5 (8.4-10.2) mg/dL Albumin 3.9 (3.9-5) g/dL Pituitary panel 06/04/21 Range/Units 07:48 Sodium 139 (137-145) mmol/L Potassium 3.5 L (3.6-5.0) mmol/L Chloride 107.1 H (98-107) mmol/L Carbon Dioxide 22 (22-30) mmol/L BUN 4 L (7-17) mg/dL Creatinine 0.5 L (0.6-1.2) mg/dL Glucose 89 (65-100) mg/dL Calcium 8.5 (8.4-10.2) mg/dL Adrenal panel 06/04/21 Range/Units 07:48 Sodium 139 (137-145) mmol/L Potassium 3.5 L (3.6-5.0) mmol/L Chloride 107.1 H (98-107) mmol/L Carbon Dioxide 22 (22-30) mmol/L BUN 4 L (7-17) mg/dL Creatinine 0.5 L (0.6-1.2) mg/dL Glucose 89 (65-100) mg/dL Calcium 8.5 (8.4-10.2) mg/dL Total Bilirubin 1.40 H (0.1-1.2) mg/dL AST 243 H (5-40) units/L ALT 540 H (7-56) units/L Alkaline Phosphatase 177 H (35-129) units/L Total Protein 6.7 (6.3-8.2) g/dL Albumin 3.9 (3.9-5) g/dL - Imaging Additional Studies: MRCP reviewed.
--- NOTE | 2021-06-04 13:39 | Progress Note ---
Assessment and Plan Assessment and plan: Assessment and plan 1. Choledocholithiasis -Intractable nausea vomiting, epigastric pain, radiation to RUQ RUQ ultrasound: Demonstrates cholelithiasis, no cholecystitis, common bile duct dilatation is 7 mm. Please refer to report for official read Transaminases downtrending -MRCP: cholelithiasis but no evidence of acute cholecystitis. Choledocholithiasis noted. CBD dilation. Please refer to official radiology report. IV Zofran prn, Morphine prn, dilaudid prn N.p.o. -General surgery consulted: Plan for potential surgery on 06/05 Gastroenterology consulted, plan for ERCP on 06/04 in the afternoon. 2. Hypoglycemia (improved) - BG 60 this AM - hypoglyemic protocol ordered - D10W IV x 1 bag. 3. Hypotension (improved) - Now resolved -Increase fluid rate. 4. Transaminitis Biliary obstruction vs viral AST 1150, ALT 600, ALP 100 on admission. Avoid hepatotoxic agents Hepatitis panel ordered Daily hepatic panel 4. Cholelithiasis Noted on RUQ ultrasound Management as above 5. Acute epigastric abdominal pain (improved) - management as above. History Interval history: 06/04/2021: Overnight patient blood pressure was low. Increase fluid rate to 125 cc/h. Plan for ERCP this afternoon. Potential surgery for tomorrow. Answered all questions for patient to her satisfaction. 06/03/2021: Patient this morning stated that she is feeling fatigue. Was requesting food and water. MRCP demosntrates CBD dilation with obstructing stone. GI consulted for ERCP. Hospitalist Physical - Physical exam Narrative exam: Physical Exam: GENERAL APPEARANCE: Well developed, fatigued this AM, alert and cooperative, and appears to be in no acute distress at the time of this exam. HEAD: normocephalic. EYES: PERRL, EOMI. Vision is grossly intact. EARS: No gross deformities NOSE: No nasal discharge. THROAT: Oral cavity and pharynx normal. No inflammation, swelling, exudate, or lesions. Teeth and gingiva in good general condition. NECK: Neck supple, non-tender without lymphadenopathy, masses or thyromegaly. CARDIAC: Normal S1 and S2. No S3, S4 or murmurs. Rhythm is regular. There is no peripheral edema, cyanosis or pallor. Extremities are warm and well perfused. Capillary refill is less than 2 seconds. No carotid bruits. LUNGS: Clear to auscultation and percussion without rales, rhonchi, wheezing or diminished breath sounds. ABDOMEN: Positive bowel sounds. Soft, nondistended, tender in epigastric region with some guarding at right upper quadrant. NO rebound tenderness. No masses. MUSKULOSKELETAL: Adequately aligned spine. ROM intact spine and extremities. No joint erythema or tenderness. Normal muscular development. Normal gait. BACK: Examination of the spine reveals normal gait and posture EXTREMITIES: No significant deformity or joint abnormality. No edema. Peripheral pulses intact. No varicosities. NEUROLOGICAL: CN II-XII intact. Strength and sensation symmetric and intact throughout. Reflexes 2+ throughout. PSYCHIATRIC: The mental examination revealed the patient was oriented to person, place, and time. - Constitutional Vitals: Temp Pulse Resp BP Pulse Ox 98.6 F 69 16 90/53 96 06/04/21 10:34 06/04/21 10:34 06/04/21 10:34 06/04/21 10:34 06/04/21 11:41 Results - Labs CBC & Chem 7: 06/04/21 07:48 06/04/21 07:48 Labs: Laboratory Last Values WBC 6.0 K/mm3 (4.5-11.0) 06/04/21 07:48 RBC 3.56 M/mm3 (3.65-5.03) L 06/04/21 07:48 Hgb 10.5 gm/dl (10.1-14.3) 06/04/21 07:48 Hct 31.4 % (30.3-42.9) 06/04/21 07:48 MCV 88 fl (79-97) 06/04/21 07:48 MCH 30 pg (28-32) 06/04/21 07:48 MCHC 34 % (30-34) 06/04/21 07:48 RDW 15.7 % (13.2-15.2) H 06/04/21 07:48 Plt Count 150 K/mm3 (140-440) 06/04/21 07:48 Lymph % (Auto) 35.1 % (13.4-35.0) H 06/04/21 07:48 [place] % (Auto) 6.5 % (0.0-7.3) 06/04/21 07:48 Eos % (Auto) 1.8 % (0.0-4.3) 06/04/21 07:48 Baso % (Auto) 0.5 % (0.0-1.8) 06/04/21 07:48 Lymph # (Auto) 2.1 K/mm3 (1.2-5.4) 06/04/21 07:48 [place] # (Auto) 0.4 K/mm3 (0.0-0.8) 06/04/21 07:48 Eos # (Auto) 0.1 K/mm3 (0.0-0.4) 06/04/21 07:48 Baso # (Auto) 0.0 K/mm3 (0.0-0.1) 06/04/21 07:48 Seg Neutrophils % 56.1 % (40.0-70.0) 06/04/21 07:48 Seg Neutrophils # 3.3 K/mm3 (1.8-7.7) 06/04/21 07:48 Sodium 139 mmol/L (137-145) 06/04/21 07:48 Potassium 3.5 mmol/L (3.6-5.0) L 06/04/21 07:48 Chloride 107.1 mmol/L (98-107) H 06/04/21 07:48 Carbon Dioxide 22 mmol/L (22-30) 06/04/21 07:48 Anion Gap 13 mmol/L 06/04/21 07:48 BUN 4 mg/dL (7-17) L 06/04/21 07:48 Creatinine 0.5 mg/dL (0.6-1.2) L 06/04/21 07:48 Estimated GFR > 60 ml/min 06/04/21 07:48 BUN/Creatinine Ratio 8 % 06/04/21 07:48 Glucose 89 mg/dL (65-100) 06/04/21 07:48 POC Glucose 103 mg/dL (70-105) 06/03/21 21:26 Lactic Acid 0.70 mmol/L (0.7-2.0) 06/02/21 08:06 Calcium 8.5 mg/dL (8.4-10.2) 06/04/21 07:48 Phosphorus 3.10 mg/dL (2.5-4.5) 06/03/21 07:56 Magnesium 2.20 mg/dL (1.7-2.3) 06/03/21 07:56 Total Bilirubin 1.40 mg/dL (0.1-1.2) H 06/04/21 07:48 AST 243 units/L (5-40) H 06/04/21 07:48 ALT 540 units/L (7-56) H 06/04/21 07:48 Alkaline Phosphatase 177 units/L (35-129) H 06/04/21 07:48 Total Protein 6.7 g/dL (6.3-8.2) 06/04/21 07:48 Albumin 3.9 g/dL (3.9-5) 06/04/21 07:48 Albumin/Globulin Ratio 1.4 % 06/04/21 07:48 Lipase 27 units/L (13-60) 06/02/21 04:24 HCG, Qual Negative (Negative) 06/02/21 04:24 Urine Color Yellow (Yellow) 06/02/21 06:34 Urine Turbidity Cloudy (Clear) 06/02/21 06:34 Urine pH 6.0 (5.0-7.0) 06/02/21 06:34 Ur Specific [place] 1.027 (1.003-1.030) 06/02/21 06:34 Urine Protein <15 mg/dl mg/dL (Negative) 06/02/21 06:34 Urine Glucose (UA) Neg mg/dL (Negative) 06/02/21 06:34 Urine Ketones Neg mg/dL (Negative) 06/02/21 06:34 Urine Blood Neg (Negative) 06/02/21 06:34 Urine Nitrite Neg (Negative) 06/02/21 06:34 Urine Bilirubin Neg (Negative) 06/02/21 06:34 Urine Urobilinogen 2.0 mg/dL (<2.0) 06/02/21 06:34 Ur Leukocyte Esterase Neg (Negative) 06/02/21 06:34 Urine WBC (Auto) 4.0 /HPF (0.0-6.0) 06/02/21 06:34 Urine RBC (Auto) 28.0 /HPF (0.0-6.0) 06/02/21 06:34 U Epithel Cells (Auto) 8.0 /HPF (0-13.0) 06/02/21 06:34 Urine Mucus 3+ /HPF 06/02/21 06:34 Hepatitis A IgM Ab Non-reactive (NonReactive) 06/02/21 12:17 Hep Bs Antigen Non-reactive (Negative) 06/02/21 12:17 Hep B Core IgM Ab Non-reactive (NonReactive) 06/02/21 12:17 Hepatitis C Antibody Non-reactive (NonReactive) 06/02/21 12:17 Microbiology: Microbiology 06/02/21 08:06 Peripheral/Venous Blood Culture - Preliminary NO GROWTH AFTER 48 HOURS 06/02/21 08:06 Peripheral/Venous Blood Culture - Preliminary NO GROWTH AFTER 48 HOURS [place]/IV: Voiding Method Toilet Active Medications - Current Medications Current Medications: Generic Name Dose Route Start Last Admin Trade Name Freq PRN Reason Stop Dose Admin Dextrose 50 ml 06/03/21 11:15 Dextrose 50% In Water (25gm) 50 Ml Syringe IV Q30MIN PRN Hypoglycemia Protocol Hydromorphone HCl 0.5 mg 06/02/21 07:36 Hydromorphone 1 Mg/1 Ml Inj IV Q3H PRN Pain , Severe (7-10) Piperacillin Sod/Tazobactam Sod 3.375 gm in 50 mls @ 100 mls/hr 06/03/21 11:00 06/04/21 13:22 Zosyn/Ns 3.375gm/50ml IV 100 mls/hr Q6HR WEST Administration Dextrose 1,000 mls @ 100 mls/hr 06/04/21 08:00 06/04/21 10:29 D10w IV 100 mls/hr DIRECT WEST Administration Sodium Chloride 1,000 mls @ 50 mls/hr 06/04/21 10:30 Nacl 0.9% 1000 Ml IV 06/05/21 10:29 DIRECT WEST Morphine Sulfate 2 mg 06/02/21 11:00 06/03/21 06:46 Morphine 2 Mg/1 Ml Inj IV 2 mg Q4H PRN Administration Pain, Moderate (4-6) Ondansetron HCl 4 mg 06/02/21 07:36 Ondansetron 4 Mg/2 Ml Inj IV Q8H PRN Nausea And Vomiting Sodium Chloride 10 ml 06/02/21 10:00 06/04/21 10:29 Sodium Chloride 0.9% 10 Ml Flush Syringe IV 10 ml BID WEST Administration Sodium Chloride 10 ml 06/02/21 22:00 06/04/21 10:33 Sodium Chloride 0.9% 10 Ml Flush Syringe IV Not Given BID WEST Sodium Chloride 10 ml 06/02/21 11:00 Sodium Chloride 0.9% 10 Ml Flush Syringe IV PRN PRN LINE FLUSH
[2021-06-04] MEDS ORDERED: MIDAZOLAM 2 MG/2 ML INJ ONE (13:40)
[2021-06-04] MEDS ORDERED: propofoL 200 MG/20 ML VIAL IV ONE ×2 (13:40→14:03)
[2021-06-04] MEDS ORDERED: LIDOCAINE MPF (2%) 20 MG/1 ML VIAL 5 ML ONE (13:41)
[2021-06-04] MEDS ORDERED: SODIUM CHLORIDE 0.9% 100 ML ONE (13:51)
--- NOTE | 2021-06-04 13:52 | Anesthesia Day of Surgery ---
Anesthesia Day of Surgery - Day of Surgery Patient Examined: Yes Patient H&P Reviewed: Yes Patient is NPO: Yes
--- NOTE | 2021-06-04 13:53 | Anesthesia Consultation ---
Anesthesia Consult and Med Hx Date of service: 06/04/21 - Airway Anesthetic Teeth Evaluation: Good ROM Head & Neck: Adequate Mental/Hyoid Distance: Adequate Mallampati Class: Class II Intubation Access Assessment: Good - Pre-Operative Health Status ASA Pre-Surgery Classification: ASA2 Proposed Anesthetic Plan: MAC (GA if needed) - Pulmonary Hx Smoking: No - Central Nervous System Hx Psychiatric Problems: No - Other Systems Hx Obesity: No - Additional Comments Anesthesia Medical History Comments: Used language line to interpret
[2021-06-04] MEDS ORDERED: fentaNYL 100 MCG/2 ML INJ ONE (14:04)
[2021-06-04] MEDS ORDERED: GLUCAGON (HUMAN RECOMBINANT) 1 MG/ML INJ ONE (14:11)
[2021-06-04] MEDS ORDERED: ONDANSETRON 4 MG/2 ML INJ ONE (14:22)
--- NOTE | 2021-06-04 15:03 | Post Anesthesia Evaluation ---
- Post Anesthesia Evaluation Patient Participated: Yes Airway Patent: Yes Stable Respiratory Function: Yes Nausea/Vomiting: No Temp > 96.8F: Yes Pain Manageable: Yes Adequeate Hydration: Yes Anesthesia Complications: No Block Receding Appropriately: Not Applicable Patient on Ventilator: No
--- NOTE | 2021-06-04 15:06 | Post Operative Note ---
Pre-op diagnosis: biliary stone Post-op diagnosis: same Findings: ercp: stone x 1 cbd stone - sphinterotomy - stone x 1 removed Procedure: ERCP w/ stone extraction Anesthesia: MAC Surgeon: EMMANUELLE THOMPSON Estimated blood loss: none Pathology: list Specimen disposition: to lab Condition: stable Disposition: floor
--- NOTE | 2021-06-04 15:13 | Fluoroscopy Report ---
INTRAOPERATIVE FLUOROSCOPY INDICATION / CLINICAL INFORMATION: biliary stone. TECHNIQUE: Intraoperative spot images were obtained during the procedure. FINDINGS: Intraoperative fluoroscopy images See operative/procedure note by performing physician for full details. Fluoroscopy Time: 1 minute and 52 seconds. Fluoroscopy Images: 5. Signer Name: Sae Ledesma MD Signed: 06/04/2021 3:09 PM Workstation Name: [employer]
--- NOTE | 2021-06-04 15:19 | Operative Report ---
DATE OF SURGERY: 06/04/2021 PROCEDURE: Endoscopic retrograde cholangiopancreatography with sphincterotomy and stone extraction. INDICATION: Choledocholithiasis. MEDICATIONS: Propofol per [employer]. COMPLICATIONS: None. DESCRIPTION OF PROCEDURE: The patient was brought to the procedure suite. The patient had the procedure discussed with her at length. All risks, complications, and benefits were discussed, after which the patient signed for the procedure to be performed. The patient was placed in left lateral decubitus position. Mouth block placed in the patient's oral cavity. After adequate sedation with medications above, ERCP scope placed in the mouth and brought to the level of the second portion of the duodenum. No retroflexion view was performed. The patient's vital signs remained stable throughout the procedure. FINDINGS: Grossly normal-appearing esophagus and stomach. The ampulla appeared normal. Sphincterotome with a guidewire was then inserted. Pancreatogram showed a normal-appearing pancreatic duct. Cholangiogram showed a single distal common bile duct defect with approximately 8-9 mm common bile duct. Sphincterotomy performed with medium size. A 9-12 mm balloon used to remove one medium stone. No further stones or debris was removed. Occlusion cholangiogram showed no filling defects. No stents were placed. No other intervention was performed. The patient tolerated the procedure well. No complications during this procedure. IMPRESSION: 1. Normal-appearing esophagus and stomach. 2. Normal ampulla. 3. Normal pancreatogram. 4. Cholangiogram with filling defect. 5. Sphincterotomy performed. 6. Stone x1 removed. RECOMMENDATIONS: 1. Follow labs. 2. Advance diet with n.p.o. after midnight. 3. Laparoscopic cholecystectomy per Surgery Team. 4. We will follow up in a.m. TID: [id number] RECEIPT: [id number] [facility]
[2021-06-04] MEDS: MORPHINE 2 MG/1 ML INJ IV PRN (15:40)
--- NOTE | 2021-06-04 16:06 | Consultation ---
DATE OF CONSULTATION: 06/04/2021 REFERRING PHYSICIAN: Dr. Arsenio Estrada INDICATIONS: Choledocholithiasis. HISTORY OF PRESENT ILLNESS: The patient is a 30-year-old female who presents with 2 days of ____ right upper quadrant pain associated with nausea, vomiting. The patient reports symptoms have been ongoing for a while, but worse in the last couple of days, she reports worse with fatty foods. Denies any NSAIDs or aspirin. Denies any lower GI symptoms including diarrhea, constipation or rectal bleeding. The patient subsequently came to the Emergency Room where evaluation included an MRCP showing choledocholithiasis. GI is consulted to aid in management. PAST MEDICAL HISTORY: Negative. ALLERGIES: No known drug allergies. MEDICATIONS: Reviewed and updated in chart. SOCIAL HISTORY: Denies alcohol, tobacco or drug abuse. FAMILY HISTORY: No history of colon cancer, IBD or liver disease. REVIEW OF SYSTEMS: GENERAL: Reports some weakness. HEENT: Denies visual complaints or tinnitus. PULMONARY: Denies shortness of breath, chest pain. GASTROINTESTINAL: Reports abdominal pain, nausea, vomiting. All points of 10-point review of systems otherwise negative. PHYSICAL EXAMINATION: VITAL SIGNS: Temperature of 97.0, pulse 60, respirations 18, blood pressure 119/76. GENERAL: Fairly nourished female, in no acute distress. HEENT: Pupils round and reactive. PULMONARY: Clear to auscultation bilaterally. CARDIOVASCULAR: Regular rate and rhythm. Normal S1, S2. ABDOMEN: Positive bowel sounds. SKIN: No obvious rashes. LABORATORY DATA: Pertinent for white count of 6, hemoglobin and hematocrit of 10.5 and 31.5, platelet count of 150. Chem-7 within normal limits. LFTs: Total bilirubin of 1.4. AST, ALT of 243 and 540 with an alkaline phosphatase of 177. MRCP showed choledocholithiasis. ASSESSMENT: A 30-year-old female presents with epigastric and right upper quadrant pain with noted choledocholithiasis. PLAN: 1. We will review ultrasound and MRCP. 2. N.p.o. 3. Follow labs. 4. Plan ERCP today with further recommendations based on the ERCP results. TID: [id number] RECEIPT: [id number] [facility]LILLY/ASHLEE
[2021-06-05] MEDS: PIPERACILLIN/TAZOBACTAM 3.375 3.375 GM/50 ML BAG IV SCH ×2 (01:19→06:07)
[2021-06-05] MEDS: DEXTROSE 10% IN WATER 1,000 ML IV SCH (05:13)
[2021-06-05] MEDS ORDERED: BUPIVACAINE/PF (0.5%) 5 MG/1 ML 30 ML VIAL INFILTRATI ONE (07:36)
[2021-06-05] MEDS ORDERED: LIDOCAINE (1%) 10 MG/1 ML VIAL 20 ML MDV ONE (07:36)
[2021-06-05] MEDS ORDERED: SODIUM CHLORIDE 0.9% 100 ML ONE (07:38)
--- NOTE | 2021-06-05 07:54 | Progress Note ---
Assessment and Plan Assessment and plan: Assessment and plan 1. Choledocholithiasis -Intractable nausea vomiting, epigastric pain, radiation to RUQ RUQ ultrasound: Demonstrates cholelithiasis, no cholecystitis, common bile duct dilatation is 7 mm. Please refer to report for official read Transaminases downtrending, continue trending on hepatic panel -MRCP: cholelithiasis but no evidence of acute cholecystitis. Choledocholithiasis noted. CBD dilation. Please refer to official radiology report. IV Zofran prn, Morphine prn, dilaudid prn N.p.o. -General surgery consulted: Plan for potential surgery on 06/05 Gastroenterology consulted, status post ERCP with sphincterotomy and subsequent stone removal. 2. Hypoglycemia (improved) - BG 60 this AM - hypoglyemic protocol ordered - D10W IV x 1 bag. 3. Hypotension (improved) - Now resolved -Increase fluid rate. 4. Transaminitis Biliary obstruction vs viral AST 1150, ALT 600, ALP 100 on admission. Avoid hepatotoxic agents Hepatitis panel ordered Daily hepatic panel 4. Cholelithiasis Noted on RUQ ultrasound Management as above 5. Acute epigastric abdominal pain (improved) - management as above. Hospitalist Physical - Constitutional Vitals: Temp Pulse Resp BP Pulse Ox 97.9 F 75 16 95/58 96 06/05/21 05:41 06/05/21 05:41 06/05/21 05:41 06/05/21 05:41 06/05/21 05:41 Results - Labs CBC & Chem 7: 06/04/21 07:48 06/04/21 07:48 Labs: Laboratory Last Values WBC 6.0 K/mm3 (4.5-11.0) 06/04/21 07:48 RBC 3.56 M/mm3 (3.65-5.03) L 06/04/21 07:48 Hgb 10.5 gm/dl (10.1-14.3) 06/04/21 07:48 Hct 31.4 % (30.3-42.9) 06/04/21 07:48 MCV 88 fl (79-97) 06/04/21 07:48 MCH 30 pg (28-32) 06/04/21 07:48 MCHC 34 % (30-34) 06/04/21 07:48 RDW 15.7 % (13.2-15.2) H 06/04/21 07:48 Plt Count 150 K/mm3 (140-440) 06/04/21 07:48 Lymph % (Auto) 35.1 % (13.4-35.0) H 06/04/21 07:48 Lamar % (Auto) 6.5 % (0.0-7.3) 06/04/21 07:48 Eos % (Auto) 1.8 % (0.0-4.3) 06/04/21 07:48 Baso % (Auto) 0.5 % (0.0-1.8) 06/04/21 07:48 Lymph # (Auto) 2.1 K/mm3 (1.2-5.4) 06/04/21 07:48 Lamar # (Auto) 0.4 K/mm3 (0.0-0.8) 06/04/21 07:48 Eos # (Auto) 0.1 K/mm3 (0.0-0.4) 06/04/21 07:48 Baso # (Auto) 0.0 K/mm3 (0.0-0.1) 06/04/21 07:48 Seg Neutrophils % 56.1 % (40.0-70.0) 06/04/21 07:48 Seg Neutrophils # 3.3 K/mm3 (1.8-7.7) 06/04/21 07:48 Sodium 139 mmol/L (137-145) 06/04/21 07:48 Potassium 3.5 mmol/L (3.6-5.0) L 06/04/21 07:48 Chloride 107.1 mmol/L (98-107) H 06/04/21 07:48 Carbon Dioxide 22 mmol/L (22-30) 06/04/21 07:48 Anion Gap 13 mmol/L 06/04/21 07:48 BUN 4 mg/dL (7-17) L 06/04/21 07:48 Creatinine 0.5 mg/dL (0.6-1.2) L 06/04/21 07:48 Estimated GFR > 60 ml/min 06/04/21 07:48 BUN/Creatinine Ratio 8 % 06/04/21 07:48 Glucose 89 mg/dL (65-100) 06/04/21 07:48 POC Glucose 164 mg/dL (70-105) H 06/04/21 21:58 Lactic Acid 0.70 mmol/L (0.7-2.0) 06/02/21 08:06 Calcium 8.5 mg/dL (8.4-10.2) 06/04/21 07:48 Phosphorus 3.10 mg/dL (2.5-4.5) 06/03/21 07:56 Magnesium 2.20 mg/dL (1.7-2.3) 06/03/21 07:56 Total Bilirubin 1.40 mg/dL (0.1-1.2) H 06/04/21 07:48 AST 243 units/L (5-40) H 06/04/21 07:48 ALT 540 units/L (7-56) H 06/04/21 07:48 Alkaline Phosphatase 177 units/L (35-129) H 06/04/21 07:48 Total Protein 6.7 g/dL (6.3-8.2) 06/04/21 07:48 Albumin 3.9 g/dL (3.9-5) 06/04/21 07:48 Albumin/Globulin Ratio 1.4 % 06/04/21 07:48 Lipase 27 units/L (13-60) 06/02/21 04:24 HCG, Qual Negative (Negative) 06/02/21 04:24 Urine Color Yellow (Yellow) 06/02/21 06:34 Urine Turbidity Cloudy (Clear) 06/02/21 06:34 Urine pH 6.0 (5.0-7.0) 06/02/21 06:34 Ur Specific [place] 1.027 (1.003-1.030) 06/02/21 06:34 Urine Protein <15 mg/dl mg/dL (Negative) 06/02/21 06:34 Urine Glucose (UA) Neg mg/dL (Negative) 06/02/21 06:34 Urine Ketones Neg mg/dL (Negative) 06/02/21 06:34 Urine Blood Neg (Negative) 06/02/21 06:34 Urine Nitrite Neg (Negative) 06/02/21 06:34 Urine Bilirubin Neg (Negative) 06/02/21 06:34 Urine Urobilinogen 2.0 mg/dL (<2.0) 06/02/21 06:34 Ur Leukocyte Esterase Neg (Negative) 06/02/21 06:34 Urine WBC (Auto) 4.0 /HPF (0.0-6.0) 06/02/21 06:34 Urine RBC (Auto) 28.0 /HPF (0.0-6.0) 06/02/21 06:34 U Epithel Cells (Auto) 8.0 /HPF (0-13.0) 06/02/21 06:34 Urine Mucus 3+ /HPF 06/02/21 06:34 Hepatitis A IgM Ab Non-reactive (NonReactive) 06/02/21 12:17 Hep Bs Antigen Non-reactive (Negative) 06/02/21 12:17 Hep B Core IgM Ab Non-reactive (NonReactive) 06/02/21 12:17 Hepatitis C Antibody Non-reactive (NonReactive) 06/02/21 12:17 Microbiology: Microbiology 06/02/21 08:06 Peripheral/Venous Blood Culture - Preliminary NO GROWTH AFTER 48 HOURS 06/02/21 08:06 Peripheral/Venous Blood Culture - Preliminary NO GROWTH AFTER 48 HOURS [place]/IV: Voiding Method Toilet Active Medications - Current Medications Current Medications: Generic Name Dose Route Start Last Admin Trade Name Freq PRN Reason Stop Dose Admin Dextrose 50 ml 06/03/21 11:15 Dextrose 50% In Water (25gm) 50 Ml Syringe IV Q30MIN PRN Hypoglycemia Protocol Hydromorphone HCl 0.5 mg 06/02/21 07:36 06/05/21 02:18 Hydromorphone 1 Mg/1 Ml Inj IV 0.5 mg Q3H PRN Administration Pain , Severe (7-10) Piperacillin Sod/Tazobactam Sod 3.375 gm in 50 mls @ 100 mls/hr 06/03/21 11:00 06/05/21 06:07 Zosyn/Ns 3.375gm/50ml IV 100 mls/hr Q6HR WEST Administration Dextrose 1,000 mls @ 100 mls/hr 06/04/21 08:00 06/05/21 05:13 D10w IV 100 mls/hr DIRECT WEST Administration Sodium Chloride 1,000 mls @ 50 mls/hr 06/04/21 10:30 Nacl 0.9% 1000 Ml IV 06/05/21 10:29 DIRECT WEST Morphine Sulfate 2 mg 06/02/21 11:00 06/04/21 15:40 Morphine 2 Mg/1 Ml Inj IV 2 mg Q4H PRN Administration Pain, Moderate (4-6) Ondansetron HCl 4 mg 06/02/21 07:36 Ondansetron 4 Mg/2 Ml Inj IV Q8H PRN Nausea And Vomiting Sodium Chloride 10 ml 06/02/21 10:00 06/04/21 21:19 Sodium Chloride 0.9% 10 Ml Flush Syringe IV 10 ml BID WEST Administration Sodium Chloride 10 ml 06/02/21 22:00 06/04/21 23:05 Sodium Chloride 0.9% 10 Ml Flush Syringe IV Not Given BID WEST Sodium Chloride 10 ml 06/02/21 11:00 Sodium Chloride 0.9% 10 Ml Flush Syringe IV PRN PRN LINE FLUSH
--- NOTE | 2021-06-05 08:04 | Anesthesia Day of Surgery ---
Anesthesia Day of Surgery - Day of Surgery Patient Examined: Yes Patient H&P Reviewed: Yes Patient is NPO: Yes Beta Blockers: No (Not on ) Cardiac Clearance: No (Not needed) Pulmonary Clearance: No (Not needed)
[2021-06-05] MEDS ORDERED: ROCURONIUM 50 MG/5 ML INJ IV ONE (08:14)
[2021-06-05] MEDS ORDERED: LIDOCAINE MPF (2%) 20 MG/1 ML VIAL 5 ML ONE (08:14)
[2021-06-05] MEDS ORDERED: SUCCINYLCHOLINE CHLORIDE 200 MG/10 ML INJ MDV ONE (08:14)
[2021-06-05] MEDS ORDERED: HYDROmorphone 1 MG/1 ML INJ ONE (08:14)
[2021-06-05] MEDS ORDERED: propofoL 200 MG/20 ML VIAL IV ONE (08:14)
[2021-06-05] MEDS ORDERED: MIDAZOLAM 2 MG/2 ML INJ ONE (08:17)
--- NOTE | 2021-06-05 08:47 | Event Note ---
Date: 06/05/21 Patient chart reviewed. s/p ERCP yesterday with stone extraction, sphincterotomy. Patient c/o gas pains in abdomen. No n/v. Discussed cholecystect mushtaq with patient along with risks, benefits, alternatives using wine consultant line. All questions answered and consent obtained. Will proceed to OR today. Likely can be discharged after surgery.
[2021-06-05] MEDS ORDERED: BUPIVACAINE/PF (0.5%) 5 MG/1 ML 10 ML VIAL INFILTRATI ONE (09:17)
[2021-06-05] MEDS ORDERED: LIDOCAINE (1%) 10 MG/1 ML VIAL 20 ML MDV INFILTRATI ONE (09:17)
[2021-06-05] MEDS ORDERED: .SODIUM CHLORIDE 0.9% IRRIG SOLN 3000 ML IR ONE (09:17)
[2021-06-05] MEDS ORDERED: ONDANSETRON 4 MG/2 ML INJ ONE (09:28)
[2021-06-05] MEDS ORDERED: dexAMETHasone 20 MG/5 ML VIAL ONE (09:28)
[2021-06-05] MEDS ORDERED: LACTATED RINGERS 2,000 ML ONE (09:28)
[2021-06-05] MEDS ORDERED: NEOSTIGMINE 10MG/10 ML INJ MDV ONE (09:56)
[2021-06-05] MEDS ORDERED: GLYCOPYRROLATE 0.4 MG/2 ML INJ ONE (09:56)
[2021-06-05] MEDS ORDERED: PHENYLEPHRINE/NS 1,000 MCG/10 ML SYRINGE (OR USE) IV ONE (10:00)
--- NOTE | 2021-06-05 10:16 | Post Operative Note ---
Date of procedure: 06/05/21 Pre-op diagnosis: choledocolithiasis Post-op diagnosis: same Findings: distended gallbladder with stones Procedure: laparoscopic cholecystectomy Anesthesia: MAZINA, local Surgeon: NATACHA IBARRA Estimated blood loss: minimal Pathology: list (gallbladder) Specimen disposition: to lab Condition: stable Disposition: PACU (Called patient's NOK - phone numbers in [place] are incorrect)
[2021-06-05] MEDS ORDERED: oxyCODONE /ACETAMINOPHEN 5-325MG TAB PO PRN (10:19)
[2021-06-05] MEDS ORDERED: IBUPROFEN 800 MG TAB PO PRN (10:19)
--- NOTE | 2021-06-05 11:08 | Operative Report ---
Operative Report Operative Report: Date: 06/05/21 Date of procedure: 06/05/21 Pre-op diagnosis: choledocolithiasis Post-op diagnosis: same Findings: distended gallbladder with stones Procedure: laparoscopic cholecystectomy Anesthesia: CLEO, local Surgeon: NATACHA IBARRA Estimated blood loss: minimal Pathology: list (gallbladder) Specimen disposition: to lab Condition: stable Disposition: PACU HPI an indication: 30-year-old female who presented to the emergency room with complaints of abdominal pain. She was found to have choledocholithiasis on work-up. She underwent an ERCP with sphincterotomy and stone extraction. It was recommended that she undergo cholecystectomy prior to discharge. All risk, benefits, alternatives to surgery were discussed with the patient using the [employer] medical interpreter line. All questions were answered and consent obtained. Procedure in detail: The patient was identified in the preoperative area and taken back to the operating room, placed on the operating room table in supine position. After anesthesia was induced, the abdomen was prepped and draped in usual sterile fashion and timeout was performed. Local anesthetic was infiltrated into all of the skin incision sites. Using an 11 blade, a supraumbilical incision was made through which a Veress needle was inserted. The position of the veress needle was confirmed with the saline drop test and the abdomen was then insufflated to 15 mmHg without incident. The veress needle was then removed and a 5 mm Optiview trocar placed through this incision. The abdomen was then inspected and there was no underlying injury to any of the abdominal contents. An additional 12 mm subxyphoid port, and 2, 5mm RUQ ports were then placed under direct visualization. The patient was then placed into reverse Trendelberg and tilted to the left. The gallbladder was very distended. There was a fatty liver. The gallbladder fundus was grasped and retracted cephalad. The infundibulum was grasped and retracted laterally and the cystic duct and artery were carefully skeletonized. Once a critical view was successfully obtained, the cystic duct and artery were seen as the only 2 structures entering the gallbladder. 3 clips were placed on the proximal aspect of the cystic duct and one distally and 3 clips on the proximal aspect of the cystic artery and one distally. The structures were transected in between the clips using EndoShears. The gallbladder was then dissected off the liver bed using hook electrocautery. The gallbladder wall was thin on the medial aspect and the gallbladder wall was punctured. There was leakage of some bile but no stones. The gallbladder was placed into an Endo Catch bag and removed via the 12 mm port. It did contain a large stone. The right upper quadrant was then evacuated of all bile and irrigated until irrigant returned clear. The liver bed and gallbladder fossa were inspected and hemostasis very carefully ensured using electrocautery. There was no bleeding or bile leakage seen from the surgical site. The clips on the cystic duct and artery were visualized and intact. Fidel powder was sprayed onto the liver bed to further ensure hemostasis. The patient was placed into neutral position. The 12 mm port fascia was closed using an 0 Vicryl interrupted stitch with a Eleazar Michelle device. The remaining ports were removed under direct visualization and the abdomen desufflated. Skin incisions were closed with 4-0 Monocryl subcuticular stitches and skin glue. All skin incisions were once again infiltrated with local anesthetic. At the end case all sponge, instrument, sharp counts were correct 2. The patient was awoken from anesthesia, extubated, and taken to PACU in stable condition.
[2021-06-05 11:42] LABS: Basophils % (Auto) 0.1 % (0.0-1.8); Eosinophils % (Auto) 0.1 % (0.0-4.3); Hematocrit 31.8 % (30.3-42.9); Hemoglobin 10.5 gm/dl (10.1-14.3); Lymphocytes # (Auto) 0.9 K/mm3 (1.2-5.4); Lymphocytes % (Auto) 8.5 % (13.4-35.0); Mean Corpuscular HGB Conc 33 % (30-34); Mean Corpuscular Volume 88 fl (79-97); Monocytes # (Auto) 0.2 K/mm3 (0.0-0.8); Monocytes % (Auto) 1.7 % (0.0-7.3); Platelet Count 151 K/mm3 (140-440); Red Blood Count 3.62 M/mm3 (3.65-5.03); Red Cell Distribution Width 15.5 % (13.2-15.2)
--- NOTE | 2021-06-05 11:48 | Discharge Summary ---
Providers - Providers Date of Admission: 06/02/21 07:35 Date of discharge: 06/05/21 Attending physician: AZRA NORWOOD MD 06/02/21 07:30 Consult to Physician [CONS] Stat Comment: Consulting Provider: MARIO SCHUSTER Physician Instructions: NPO, IV Abx, Pain control; Hospitalist admit Reason For Exam: cholelithiasis 06/03/21 15:57 Consult to Physician [CONS] Routine Comment: Consulting Provider: EMMANUELLE PEPPER Physician Instructions: Reason For Exam: choledocholithiasis Primary care physician: INTERIOR DESIGN INSTRUCTOR Hospitalization Reason for admission: Abdominal pain Condition: Fair Hospital course: 1. Choledocholithiasis -Intractable nausea vomiting, epigastric pain, radiation to RUQ RUQ ultrasound: Demonstrates cholelithiasis, no cholecystitis, common bile duct dilatation is 7 mm. Please refer to report for official read Transaminases downtrending -MRCP: cholelithiasis but no evidence of acute cholecystitis. Choledocholithiasis noted. CBD dilation. Please refer to official radiology report. IV Zofran prn, Morphine prn, dilaudid prn N.p.o. -General surgery consulted: Status post cholecystectomy. Gastroenterology consulted, plan for ERCP on 06/04 in the afternoon. 2. Hypoglycemia (improved) - BG 60 this AM - hypoglyemic protocol ordered - D10W IV x 1 bag. 3. Hypotension (improved) - Now resolved -Increase fluid rate. 4. Transaminitis Biliary obstruction vs viral AST 1150, ALT 600, ALP 100 on admission. Avoid hepatotoxic agents Hepatitis panel ordered Daily hepatic panel 4. Cholelithiasis Noted on RUQ ultrasound Management as above 5. Acute epigastric abdominal pain (improved) - management as above. History Interval history: 06/05/21: Tolerated ERCP on 06/04 well with stone removal. Patient went to OR on 06/05 for cholecystectomy and recovering well post op. Mild tenderness at incision sites. Discussed with surgeon regarding dispo, safe for d/c today. WIll go home with rx for percocet which is in chart. Education distributed to patient regarding condition. She was instructed to follow up with surgery and GI outpatient. 06/04/2021: Overnight patient blood pressure was low. Increase fluid rate to 125 cc/h. Plan for ERCP this afternoon. Potential surgery for tomorrow. Answered all questions for patient to her satisfaction. 06/03/2021: Patient this morning stated that she is feeling fatigue. Was requesting food and water. MRCP demosntrates CBD dilation with obstructing stone. GI consulted for ERCP. Disposition: DC-01 TO HOME OR SELFCARE Final Discharge Diagnosis (Prints w/discharge instructions): Choledocholithiasis Time spent for discharge: 35 - Discharge Diagnoses (1) Transaminitis Status: Acute (2) Choledocholithiasis with acute cholecystitis Status: Acute (3) Acute abdominal pain in right upper quadrant Status: Acute (4) Acute cholecystitis with chronic cholecystitis Status: Acute (5) Cholelithiasis without cholecystitis Status: Acute (6) Nausea and vomiting in adult patient Status: Acute Core Measure Documentation - Palliative Care Palliative Care/ Comfort Measures: Not Applicable - Core Measures Any of the following diagnoses?: none Exam - Physical Exam Narrative exam: Physical Exam: GENERAL APPEARANCE: Well developed, fatigued this AM, alert and cooperative, and appears to be in no acute distress at the time of this exam. HEAD: normocephalic. EYES: PERRL, EOMI. Vision is grossly intact. EARS: No gross deformities NOSE: No nasal discharge. THROAT: Oral cavity and pharynx normal. No inflammation, swelling, exudate, or lesions. Teeth and gingiva in good general condition. NECK: Neck supple, non-tender without lymphadenopathy, masses or thyromegaly. CARDIAC: Normal S1 and S2. No S3, S4 or murmurs. Rhythm is regular. There is no peripheral edema, cyanosis or pallor. Extremities are warm and well perfused. Capillary refill is less than 2 seconds. No carotid bruits. LUNGS: Clear to auscultation and percussion without rales, rhonchi, wheezing or diminished breath sounds. ABDOMEN: Positive bowel sounds. Soft, nondistended, tender in epigastric region with some guarding at right upper quadrant. NO rebound tenderness. No masses. MUSKULOSKELETAL: Adequately aligned spine. ROM intact spine and extremities. No joint erythema or tenderness. Normal muscular development. Normal gait. BACK: Examination of the spine reveals normal gait and posture EXTREMITIES: No significant deformity or joint abnormality. No edema. Peripheral pulses intact. No varicosities. NEUROLOGICAL: CN II-XII intact. Strength and sensation symmetric and intact throughout. Reflexes 2+ throughout. PSYCHIATRIC: The mental examination revealed the patient was oriented to person, place, and time. - Constitutional Vitals: Temp Pulse Resp BP Pulse Ox 98.7 F 64 12 108/67 100 06/05/21 10:16 06/05/21 10:31 06/05/21 10:31 06/05/21 10:31 06/05/21 10:31 Plan Activity: advance as tolerated Weight Bearing Status: Weight Bear as Tolerated Diet: low cholesterol Wound: per your surgeon's advice Plan of Treatment: Dipti Brito. You were admitted for choledocholithiasis. An MRCP determined that you had a stone obstructing your bile duct. A appliance repair technician saw you in the hospital and performed a procedure called an ERCP to removed the stone from your bile duct. You were also evaluated by a surgeon, who removed your gallbladder which is believed to be the source of your stones. You will be discharged home with a prescription for pain medicine (percocet) and instructions to follow up with your surgeon. Dr. Semaj Jaimes (surgery) [facility] [address] [place] [id number] New Patients: Existing Patients: Dr. Jose Guadalupe Pepper (GI) Gastroenterology Address [address] [facility] [address] [place] [id number] Follow up with: NATACHA IBARRA DO [Staff Physician] - 14 Days PRIMARY CARE, [Primary Care Provider] - 7 Days Prescriptions: oxyCODONE /ACETAMINOPHEN [Percocet 5/325] 1 tab PO Q4HR PRN #20 tab PRN Reason: Pain , Severe (7-10)
[2021-06-05 12:09] LABS: Alanine Aminotransferase 476 units/L (7-56); Albumin 3.7 g/dL (3.9-5); Blood Urea Nitrogen 2 mg/dL (7-17); Calcium 8.8 mg/dL (8.4-10.2); Hemolysis Index 5
[2021-06-05 12:11] LABS: BUN/Creatinine Ratio 4
[2021-06-05] MEDS: MORPHINE 2 MG/1 ML INJ IV PRN (12:44)
[2021-06-05 12:56] VITALS: BP 103/68
--- NOTE | 2021-06-05 14:36 | Gastroenterology Progress Note ---
Assessment and Plan GI: s/p ercp w/ stone removal - for lap ge today - ok to dc if stable after lap ge from GI standpoint - will sign off, call if needed Subjective Date of service: 06/05/21 Interval history: - no GI issues overnight Objective - Constitutional Vitals: Temp Pulse Resp BP Pulse Ox 98.0 F 70 19 103/68 98 06/05/21 12:28 06/05/21 12:28 06/05/21 12:28 06/05/21 12:28 06/05/21 12:28 General appearance: no acute distress - EENT Eyes: PERRL - Respiratory Respiratory: bilateral: CTA - Cardiovascular Rhythm: regular Heart Sounds: Present: S1 & S2 - Gastrointestinal General gastrointestinal: Present: soft, non-tender, non-distended - Labs CBC & Chem 7: 06/05/21 11:24 06/05/21 11:24 Labs: Laboratory Results - last 24 hr 06/04/21 06/05/21 06/05/21 21:58 07:58 11:24 WBC 11.2 H RBC 3.62 L Hgb 10.5 Hct 31.8 MCV 88 MCH 29 MCHC 33 RDW 15.5 H Plt Count 151 Lymph % (Auto) 8.5 L [place] % (Auto) 1.7 Eos % (Auto) 0.1 Baso % (Auto) 0.1 Lymph # (Auto) 0.9 L [place] # (Auto) 0.2 Eos # (Auto) 0.0 Baso # (Auto) 0.0 Seg Neutrophils % 89.6 H Seg Neutrophils # 10.0 H Sodium Potassium Chloride Carbon Dioxide Anion Gap BUN Creatinine Estimated GFR BUN/Creatinine Ratio Glucose POC Glucose 164 H 109 H Calcium Total Bilirubin AST ALT Alkaline Phosphatase Total Protein Albumin Albumin/Globulin Ratio Lipase 06/05/21 11:24 WBC RBC Hgb Hct MCV MCH MCHC RDW Plt Count Lymph % (Auto) [place]kinson % (Auto) Eos % (Auto) Baso % (Auto) Lymph # (Auto) [place]kinson # (Auto) Eos # (Auto) Baso # (Auto) Seg Neutrophils % Seg Neutrophils # Sodium 134 L Potassium 3.8 Chloride 103.7 Carbon Dioxide 25 Anion Gap 9 BUN 2 L Creatinine 0.5 L Estimated GFR > 60 BUN/Creatinine Ratio 4 Glucose 117 H POC Glucose Calcium 8.8 Total Bilirubin 1.70 H AST 271 H ALT 476 H Alkaline Phosphatase 187 H Total Protein 6.8 Albumin 3.7 L Albumin/Globulin Ratio 1.2 Lipase 1423 H
== END 2021-06-05 17:00 | disposition home or self-care (01) | DRG 419 ==
LOC: EDBD → ED 23:31 → 3A 06-02 07:35
PROVIDERS: ADMIT Internal Medicine; ATTEND Internal Medicine
PROC: 0FC98ZZ Extirpation of Matter from Common Bile Duct, Via Natural or Artificial Opening Endoscopic (ICD-10-PCS; principal; 2021-06-04)
PROC: BF13YZZ Fluoroscopy of Gallbladder and Bile Ducts using Other Contrast (ICD-10-PCS; 2021-06-04)
PROC: 0FT44ZZ Resection of Gallbladder, Percutaneous Endoscopic Approach (ICD-10-PCS; 2021-06-05)
DX: K80.46 Calculus of bile duct with acute and chronic cholecystitis without obstruction (principal); E16.2 Hypoglycemia, unspecified; R74.01 Elevation of levels of liver transaminase levels; I95.9 Hypotension, unspecified; Z90.49 Acquired absence of other specified parts of digestive tract
CPT/HCPCS: 36415; 74181; 74330; 76705; 80053; 80074; 81001; 82140; 82962; 83690; 83735; 84100; 84703; 85025; 87040; 88304; 96374; 96375; G0378; A4217; C1726; J0330; J1100; J1170; J1610; J2250; J2270; J2370; J2405; J2543; J2704; J2710; J3010; J7030; J7120; Q0162; Q9967